=== PATIENT | male | born 1995 | race Two or more races ===

== ENCOUNTER 2021-08-29 01:31 | Emergency (ER) | payer MEDICAID, OTHER ==
[~2021-08-29] VITALS: Ht 167.6 cm; Wt 87.1 kg
[2021-08-29 01:31] VITALS: BP 128/79
== END 2021-08-29 02:25 | disposition left against medical advice (07) ==
LOC: ER 01:35
DX: M25.511 Pain in right shoulder (principal); M54.2 Cervicalgia; Z53.21 Procedure and treatment not carried out due to patient leaving prior to being seen by health care provider; X50.1XXA Overexertion from prolonged static or awkward postures, initial encounter; Y93.89 Activity, other specified; Y92.89 Other specified places as the place of occurrence of the external cause; Y99.8 Other external cause status

== ENCOUNTER 2024-08-06 15:13 | Emergency (ER) | payer MEDICAID, OTHER ==
[~2024-08-06] VITALS: Ht 167.6 cm; Wt 92.3 kg
--- NOTE | 2024-08-06 15:39 | ED.PDOC ---
SOB-HPI HPI Comments 28y M who presents to the ED for chief complaint of generalized weakness. Pt states he was smoking marijuana and states he stoop up and states he got dizzy. Pt states suddenly he felt numbness in his L hand and states his fiance told him he was talking "funny." Pt states he also started to have pain across his chest which has continued until arrival to the ED. Pt in the ED, otherwise is alert and oriented x4 and able to answer all questions. Pt otherwise has stable vitals in the ED. Pt has noted history of asthma. Pt denies any other symptoms at this time. Time Seen by MD: 15:36 Reviewed notes: Nurses Notes, Medications, Allergies Information Source: Patient Mode of Arrival: Ambulatory Brought in by: self Severity: Moderate Timing: Minutes, Hours Duration: Since onset Context: At Rest, With Light Exertion PE Risk Factors: None History of: Asthma Prehospital treatment: None Modifying Factors: Nothing Associated Signs and Symptoms: Chest Pain Past Medical History PAST MEDICAL HISTORY: Asthma Surgical History (Other): L wrist surgery Family History Family History: Family hx of DM, Family hx of heart anson Social History Smoker: Cigarettes Alcohol: Occasionally Drugs: Marijuana Lives In: Home Constitutional: denies: chills, diaphoresis, fatigue, fever, malaise, sweats, weakness, others EENTM: denies: blurred vision, double vision, ear bleeding, ear discharge, ear drainage, ear pain, ear ringing, eye pain, eye redness, hearing loss, mouth pain, mouth swelling, nasal discharge, nose bleeding, nose congestion, nose pain, photophobia, tearing, throat pain, throat swelling, voice changes, others Respiratory: reports: shortness of breath; denies: cough, hemoptysis, o rthopnea, SOB at rest, SOB with excertion, stridor, wheezing, others Cardiovascular: reports: chest pain; denies: dizzy spells, diaphoresis, Dyspnea on exertion, edema, irregular heart beat, left arm pain, lightheadedness, palpitations, PND, syncope, others Gastrointestinal: denies: abdomen distended, abdominal pain, blood streaked bowels, constipated, diarrhea, dysphagia, difficulty swallowing, hematemesis, melena, nausea, poor appetite, poor fluid intake, rectal bleeding, rectal pain, vomiting, others Genitourinary: denies: burning, dysuria, flank pain, frequency, hematuria, incontinence, penile discharge, penile sore, pain, testicle pain, testicle swelling, urgency, others Neurological: reports: dizziness; denies: fainting, headache, left sided numbness, left sided weakness, numbness, paresthesia, pre-existing deficit, right sided numbness, right sided weakness, seizure, speech problems, tingling, tremors, weakness, others Musculoskeletal: denies: back pain, gout, joint pain, joint swelling, muscle pain, muscle stiffness, neck pain, others Integumetry: denies: bruises, change in color, change in hair/nails, dryness, laceration, lesions, lumps, rash, wounds, others Allergic/Immunocompromised: denies: Difficulty Healing, Frequent Infections, Hives, Itching, others Hematologic/Lymphatic: denies: anemia, blood clots, easy bleeding, easy bruising, swollen glands, others Endocrine: denies: excessive hunger, excessive sweating, excessive thirst, excessive urination, flushing, intolerance to cold, intolerance to heat, unexplained weight gain, unexplained weight loss, others Psychiatric: denies: anxiety, bipolar disorder, depression, hopeless, panic disorder, schizophrenia, sleepless, suicidal, others All Other Systems: Reviewed and Negative Physical Exam General Appearance: No Apparent Distress HEENT: Normal ENT Inspection, Pharynx Normal, TMs Normal Neck: Full Range of Motion, Non-Tender, Normal, Normal Inspection Respiratory: Chest Non-Tender, Lungs Clear, No Accessory Muscle Use, No Respiratory Distress, Normal Breath Sounds Cardiovascular: No Edema, No JVD, No Murmur, No Gallop, Normal Peripheral Pulses, Regular Rate/Rhythm Breast Exam: Deferred Gastrointestinal: No Organomegaly, Non Tender, No Pulsatile Mass, Normal Bowel Sounds, Soft Genitalia: Deferred Pelvic: Deferred Rectal: Deferred Extremities: No calf tenderness, Normal capillary refill, Normal inspection, Normal range of motion, Non-tender, No pedal edema Musculoskeletal : Apperance: Normal Neurologic: Alert, 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 Was a procedure done?: No Differential Dx Differential Diagnosis: Asthma, Allergic Rhinitis Comments chest wall pain, X-Ray, Labs, Meds, VS The patient was being discharged with a diagnosis of noncardiac chest pain The patient will return to the emergency department's condition worsens. Time of 1ST Reevaluation: 16:10 Reevaluation 1ST: Unchanged Patient Education/Counseling: Diagnosis, Treatment, Prognosis, Need For Follow Up Family Education/Counseling: No Family Present Departure 1 Departure Time of Disposition: 15:51 Impression: Primary Impression: Non-cardiac chest pain Additional Impression: Marijuana use Disposition: 01 HOME / SELF CARE / HOMELESS Condition: Fair Discharged With: Self Critical Care Note Critical Care Time?: No Stability Stability form required: No Heart Score Heart Score: Heart Score Response (Comments) Value History Slightly Suspicious 0 EKG Normal 0 Age <45 0 Risk Factors No known risk factors 0 Troponin N/A 0 Total 0 I personally scribed for SHAHZAD KRAMER MD ([email or web address]) on 08/06/24 at 15:39. Electronically submitted by Xiomara Sullivan ([email or web address]). SHAHZAD KRAMER MD Aug 06, 2024 15:39
[2024-08-06 16:52] VITALS: BP 138/75; PULSE 80; RESP 14; O2SAT 97
--- NOTE | 2024-08-07 00:33 | ECG ---
[facility] Test Date: 2024-08-06 Test Time: 15:49:43 Pat Name: MIREYA LANDAVERDE Department: ER Room: Gender: M Vice President Payer: : 1995 Requested By: SHAHZAD KRAMER Order Number: [id number] Reading MD: Castro Teixeira Measurements Intervals [place] Rate: 78 P: 220 MN: 82 QRS: -17 QRSD: 92 T: 91 QT: 376 QTc: 429 Interpretive Statements Sinus or ectopic atrial rhythm Short MN interval Borderline left axis deviation Borderline repolarization abnormality Electronically Signed On 08-07-2024 12:11:05 PST by Castro Teixeira Please click the below link to view image of tracing.
== END 2024-08-06 18:44 | disposition home or self-care (01) ==
LOC: ER 15:13
DX: R07.89 Other chest pain (principal); F12.90 Cannabis use, unspecified, uncomplicated; F17.210 Nicotine dependence, cigarettes, uncomplicated; J45.909 Unspecified asthma, uncomplicated; Z98.890 Other specified postprocedural states
CPT/HCPCS: 93005